=== PATIENT | female | born 1985 | race Two or more races ===

== ENCOUNTER 2024-01-05 19:56 | Emergency (ER) | payer OTHER ==
[~2024-01-05] VITALS: Ht 165.1 cm; Wt 70.3 kg
[2024-01-05] MEDS ORDERED: LANTUS SOL100 UNIT/1 (20:27)
[2024-01-05] MEDS ORDERED: GLUMETZA500 MG (20:27)
[2024-01-05] MEDS ORDERED: NORVASC2.5 M1 (20:28)
[2024-01-05] MEDS ORDERED: LIDOCAINE HCL 100 MG/10ML VIAL PERCUT ONE (21:45)
[2024-01-05] MEDS ORDERED: TETANUS & DIPHTHERIA TOX,ADULT 0.5 ML VIAL IM ONE (21:45)
[2024-01-05] MEDS ORDERED: ACETAMINOPHEN 500 MG GEL..CAP PO ONE (21:45)
[2024-01-06] MEDS ORDERED: CEFTRIAXONE SODIUM 1,000 MG VIAL IM ONE (02:00)
== END 2024-01-06 02:19 | disposition home or self-care (01) ==
LOC: ER 19:56
DX: S91.311A Laceration without foreign body, right foot, initial encounter (principal); W25.XXXA Contact with sharp glass, initial encounter; Y93.E1 Activity, personal bathing and showering; Y92.59 Other trade areas as the place of occurrence of the external cause; Y99.9 Unspecified external cause status; Z88.8 Allergy status to other drugs, medicaments and biological substances; E11.9 Type 2 diabetes mellitus without complications; Z79.4 Long term (current) use of insulin; Z79.84 Long term (current) use of oral hypoglycemic drugs; I10 Essential (primary) hypertension